=== PATIENT | male | born 1985 | race African-American/Black ===

== ENCOUNTER 2022-04-20 20:16 | Emergency (ER) | payer MEDICAID, OTHER ==
[~2022-04-20] VITALS: Ht 170.2 cm; Wt 79.4 kg
--- NOTE | 2022-04-20 20:30 | NUR ---
[id number] C/O POSTERIOR HEAD PAIN S/P UMBRELLA FALLING ON HEAD WHILE AT WORK. -KO PT A/OX4 LOC WNL. TOLERATING R/A WELL WITH NO SOB. PT AMBULTAORY.
[2022-04-20] MEDS ORDERED: ACETAMINOPHEN ES 500 MG TABLET ONE (21:00)
[2022-04-20] MEDS: ACETAMINOPHEN ES 500 MG TABLET PO ONE (21:02)
[2022-04-20] MEDS ORDERED: IBUP-1957 PO (21:53)
[2022-04-20] MEDS ORDERED: IBUPROFEN 400 MG TABLET ONE (22:00)
[2022-04-20] MEDS: IBUPROFEN 400 MG TABLET PO ONE (22:02)
--- NOTE | 2022-04-20 22:15 | NUR ---
Patient discharged to home in stable condition. Written and verbal after care instructions given. Patient verbalizes understanding of instruction. pt ambulatory with a steady gait
[2022-04-20 22:17] VITALS: BP 143/81
== END 2022-04-20 22:18 | disposition home or self-care (01) ==
LOC: ER 20:18
DX: S09.90XA Unspecified injury of head, initial encounter (principal); Z60.2 Problems related to living alone; Z79.1 Long term (current) use of non-steroidal anti-inflammatories (NSAID); W20.8XXA Other cause of strike by thrown, projected or falling object, initial encounter; Y93.89 Activity, other specified; Y92.89 Other specified places as the place of occurrence of the external cause; Y99.8 Other external cause status
CPT/HCPCS: 70450-TC